=== PATIENT | female | born 1985 | race Two or more races ===

== ENCOUNTER 2022-05-21 16:21 | Emergency (ER) | payer OTHER ==
[~2022-05-21] VITALS: Ht 152.4 cm; Wt 66.2 kg
== END 2022-05-21 20:10 | disposition left against medical advice (07) ==
LOC: ER 16:21
DX: R51.9 Headache, unspecified (principal); M54.2 Cervicalgia; Z20.822 Contact with and (suspected) exposure to COVID-19